=== PATIENT | male | born 1955 | race African-American/Black ===

== ENCOUNTER 2016-08-13 13:09 | Inpatient (IN) | payer OTHER ==
[2016-08-13 17:38] VITALS: BMI 21.8
--- NOTE | 2016-08-13 18:01 | HP ---
COWS - Scale Resting Pulse: 1= [place] 81-100 Sweatin= Chills/Flushing Restless Observation: 1= Difficult to Sit Still Pupil Size: 0= Normal to Room Light Bone or Joint Aches: 1= Mild Discomfort Runny Nose/ Eye Tearin= Nasal Congestion GI Upset > 30mins: 1= Stomach Cramp Tremor Observation: 2= Slight Tremor Visible Yawning Observation: 1= 1-2x During Session Anxiety or Irritability: 1=Feels Anxious/Irritable Goose Flesh Skin: 3=Piloerection COWS Score: 13 Admission [facility] Chief Complaint: withdrawal sx Allergies/Adverse Reactions: Allergies Allergy/AdvReac Type Severity Reaction Status Date / Time No Known Allergies Allergy Verified 08/13/16 17:21 History of Present Illness: 60 years old male with long history of opiate cocaine marijuana nicotine dependence, weight loss, bph denies mental illness is admitted to detox Exam Limitations: No Limitations - Ebola screening Have you traveled outside of the country in the last 21 days: No Have you had contact with anyone from an Ebola affected area: No Have you been sick,other than usual withdrawal symptoms: No Do you have a fever: No - Review of Systems Constitutional: Chills, Loss of Appetite, Changes in sleep, Unintentional Wgt. Loss, Unexplained wgt Loss EENT: reports: No Symptoms Reported Respiratory: reports: SOB with Exertion Cardiac: reports: Chest Pain (2 weeks ago treated at [facility] released with recommendation stop cocaine,) GI: reports: Nausea, Poor Appetite, Poor Fluid Intake, Abdominal cramping : reports: Dysuria (bph) Musculoskeletal: reports: Back Pain, Joint Pain, Muscle Pain Integumentary: reports: No Symptoms Reported Neuro: reports: Tremors Endocrine: reports: No Symptoms Reported Hematology: reports: No Symptoms Reported Psychiatric: reports: Judgement Intact, Mood/Affect Appropiate, Orientated x3 Other Systems: Reviewed and Negative Patient History - Patient Medical History Hx Anemia: No Hx Asthma: No Hx Chronic Obstructive Pulmonary Disease (COPD): No Hx Cancer: No Hx Cardiac Disorders: Yes (cocaine induced chest pain on 08/10/16) Hx Congestive Heart Failure: No Hx Hypertension: No Hx Hypercholesterolemia: No Hx Pacemaker: No HX Cerebrovascular Accident: No Hx Seizures: No Hx Dementia: No Hx Diabetes: No Hx Gastrointestinal Disorders: No Hx Liver Disease: No Hx Genitourinary Disorders: No Hx Sexually Transmitted Disorders: Yes (tx for syphilis) Hx Renal Disease (ESRD): No Hx Thyroid Disease: No Hx Human Immunodeficiency Virus (HIV): No Hx Hepatitis C: No Hx Depression: No Hx Suicide Attempt: No Hx Bipolar Disorder: No Hx Schizophrenia: No - Patient Surgical History Past Surgical History: Yes Hx Orthopedic Surgery: Yes (bilateral bunion and hammertoe sx.20 yrs ago.) Anesthesia Reaction: No - PPD History Previous Implant?: Yes Documented Results: Negative w/o proof Implanted On Prior [facility] Admission?: No PPD to be Administered?: Yes - Smoking Cessation Smoking history: Current every day smoker Have you smoked in the past 12 months: Yes Aproximately how many cigarettes per day: 20 Cigars Per Day: 0 Hx Chewing Tobacco Use: No Initiated information on smoking cessation: Yes 'Breaking Loose' booklet given: 08/13/16 - Substance & Tx. History Hx Alcohol Use: No Hx Substance Use: Yes Substance Use Type: Cocaine, Marijuana, Opiates Hx Substance Use Treatment: Yes - Substances Abused Heroin Route: Inhalation Frequency: Daily Amount used: 15-20 BAGS Age of first use: 21 Date of Last Use: 08/12/16 Cocaine Route: Inhalation Frequency: 3-6 times per week Amount used: $200 Age of first use: 23 Date of Last Use: 08/10/16 Alcohol Route: Oral Frequency: 3-6 times per week Amount used: 2 CANS BEER Age of first use: 12 Date of Last Use: 08/10/16 Family Disease History - Family Disease History Family Disease History: Other: Father (), Mother () Other Family History: adopted Admission Physical Exam [facility] - Vital Signs Vital Signs: Vital Signs - 24 hr 08/13/16 17:34 Temperature 97.1 F L Pulse Rate 90 Respiratory 18 Rate Blood Pressure 115/63 - Physical General Appearance: Yes: Appropriately Dressed, Mild Distress, Thin, Tremorous, Irritable, Sweating, Anxious HEENTM: Yes: Hearing grossly Normal, Normal ENT Inspection, Normocephalic, Normal Voice Respiratory: Yes: Chest Non-Tender, Lungs Clear, Normal Breath Sounds, No Respiratory Distress, No Accessory Muscle Use Neck: Yes: Trachea in good position Breast: Yes: Breasts Symetrical Cardiology: Yes: Regular Rhythm, S1, S2, Tachycardia, Other (cocaine induced chest pain 2 weeks ago nitro sl prn) Genitourinary: Yes: Within Normal Limits Back: Yes: Normal Inspection Musculoskeletal: Yes: full range of Motion, Gait Steady, Muscle Pain Extremities: Yes: Normal Inspection, Normal Range of Motion, Non-Tender, Tremors Neurological: Yes: Fully Oriented, Alert, Motor Strength 5/5, Normal Mood/Affect , Normal Response Integumentary: Yes: Warm Lymphatic: Yes: Within Normal Limits - Diagnostic (1) Opioid dependence with withdrawal Current Visit: Yes Status: Acute (2) Cocaine dependence, uncomplicated Current Visit: Yes Status: Chronic (3) Cannabis dependence, uncomplicated Current Visit: Yes Status: Chronic (4) Nicotine dependence Current Visit: Yes Status: Acute Qualifiers: Nicotine product type: cigarettes Substance use status: in withdrawal Qualified Code(s): F17.213 - Nicotine dependence, cigarettes, with withdrawal (5) Weight loss Current Visit: Yes Status: Acute Cleared for Admission [facility] - Detox or Rehab [facility] Level of Care: Medically Managed Detox Regimen/Protocol: Methadone [facility] Breath Alcohol Content Breath Alcohol Content: 0 Urine Drug Screen - Results Drug Screen Negative: No Urine Drug Screen Results: THC-Marijuana, CHRISTINE-Cocaine, OPI-Opiates
[2016-08-13] MEDS ORDERED: NICOTINE POLACRILEX 4 MG GUM BC PRN (18:06)
[2016-08-13] MEDS ORDERED: diphenhydrAMINE HCL 50 MG CAPSULE PO PRN (18:06)
[2016-08-13] MEDS ORDERED: P-EPHED 60MG/TRIPROLIDI 2.5MG TABLET PO PRN (18:06)
[2016-08-13] MEDS ORDERED: ACETAMINOPHEN 325 MG TABLET (FP) PO PRN (18:06)
[2016-08-13] MEDS ORDERED: MAGNESIUM CITRATE 300 ML BOTTLE PO PRN (18:06)
[2016-08-13] MEDS ORDERED: LOPERAMIDE HCL 2 MG CAPSULE PO PRN (18:06)
[2016-08-13] MEDS ORDERED: MENTHOL/PHENOL 1 EACH UD MM PRN (18:06)
[2016-08-13] MEDS ORDERED: MAGNESIUM HYDROX 2400MG/30ML ORAL SUSPENSION 30 ML CUP PO PRN (18:06)
[2016-08-13] MEDS ORDERED: MAG HYDROX/AL HYDROX/SIMETH 30 ML UNIT-DOSE CUP PO PRN (18:06)
[2016-08-13] MEDS ORDERED: guaiFENesin/D-METHORPHAN HB 10 ML UNIT-DOSE CUPS PO PRN (18:06)
[2016-08-13] MEDS ORDERED: IBUPROFEN 400 MG TABLET (FP) PO PRN (18:06)
[2016-08-13] MEDS ORDERED: NITROGLYCERIN SUBLINGUAL 1/150 0.4 MG TAB SL PRN (18:08)
[2016-08-13] MEDS ORDERED: METHADONE HCL 10 MG TABLET (FOR DETOX USE ONLY) PO ONE ×2 (19:00→23:00)
[2016-08-13] MEDS: diazePAM 5 MG TABLET PO PRN (19:15)
[2016-08-13] MEDS: THIAMINE HCL 100 MG TABLET (FP) PO SCH (22:48)
[2016-08-13 23:40] LABS: URINE APPEARANCE CLEAR; URINE BILIRUBIN NEGATIVE (NEGATIVE); URINE BLOOD NEGATIVE (NEGATIVE); URINE COLOR YELLOW; URINE GLUCOSE (UA) NEGATIVE (NEGATIVE); URINE KETONE TRACE (NEGATIVE); URINE LEUK ESTERASE NEGATIVE (NEGATIVE); URINE NITRITE NEGATIVE (NEGATIVE); URINE PROTEIN NEGATIVE (NEGATIVE); URINE UROBILINOGEN 2.0 E.U/dl E.U./dl (0.2-1.0)
[2016-08-14 10:00] LABS: MCH 23.7 pg (25.7-33.7); MEAN PLT VOLUME 10.6 fl (7.5-11.1); PLATELET COUNT 169 K/MM3 (134-434); RDW 15.6 % (11.9-15.9)
[2016-08-14] MEDS ORDERED: METHADONE HCL 10 MG TABLET (FOR DETOX USE ONLY) PO ONE (10:00)
[2016-08-14 10:20] LABS: ALBUMIN 3.1 g/dl (3.4-5.0); ALK PHOS 58 U/L (45-117); ANION GAP 11 (8-16); BILIRUBIN,TOTAL 0.7 mg/dL (0.2-1.0); CALCIUM 8.6 mg/dL (8.5-10.1); CO2 24 mmol/L (21-32); CREATININE 1.1 mg/dL (0.7-1.3); GLUCOSE,RANDOM 118 mg/dL (74-106); SGOT/AST 38 U/L (15-37); SGPT/ALT 53 U/L (12-78); TOT PROT 5.6 g/dl (6.4-8.2)
--- NOTE | 2016-08-14 10:34 | PN ---
S COWS - Scale Resting Pulse: 1= [place] 81-100 Sweatin= Chills/Flushing Restless Observation: 3= Extraneous Movement Pupil Size: 2= Moderately Dilated Bone or Joint Aches: 4=Acute Joint/Muscle Pain Runny Nose/ Eye Tearin= Nasal Congestion GI Upset > 30mins: 1= Stomach Cramp Tremor Observation of Outstretched Hands: 2= Slight Tremor Visible Yawning Observation: 1= 1-2x During Session Anxiety or Irritability: 2=Irritable/Anxious Goose Flesh Skin: 0=Smooth Skin COWS Score: 18 BHS Progress Note (SOAP) Subjective: ANXIETY,SWEATS,IRRITABILITY," I'M DOPE SICK". Objective: 08/14/16 10:36 Vital Signs 08/14/16 08/14/16 08/14/16 03:34 06:19 10:04 Temperature 96.6 F L Pulse Rate 83 86 Respiratory 18 18 20 Rate Blood Pressure 127/87 121/84 Laboratory Last Values WBC 4.0 K/mm3 (4.0-10.0) 08/14/16 06:00 RBC 4.45 M/mm3 (4.00-5.60) 08/14/16 06:00 Hgb 10.6 GM/dL (11.7-16.9) L 08/14/16 06:00 Hct 32.9 % (35.4-49) L 08/14/16 06:00 MCV 74.0 fl (80-96) L 08/14/16 06:00 MCHC 32.0 g/dl (32.0-35.9) 08/14/16 06:00 RDW 15.6 % (11.9-15.9) 08/14/16 06:00 Plt Count 169 K/MM3 (134-434) 08/14/16 06:00 MPV 10.6 fl (7.5-11.1) 08/14/16 06:00 Sodium 145 mmol/L (136-145) 08/14/16 06:00 Potassium 4.2 mmol/L (3.5-5.1) 08/14/16 06:00 Chloride 110 mmol/L (98-107) H 08/14/16 06:00 Carbon Dioxide 24 mmol/L (21-32) 08/14/16 06:00 Anion Gap 11 (8-16) 08/14/16 06:00 BUN 17 mg/dL (7-18) 08/14/16 06:00 Creatinine 1.1 mg/dL (0.7-1.3) 08/14/16 06:00 Creat Clearance w eGFR > 60 (>60) 08/14/16 06:00 Random Glucose 118 mg/dL (74-106) H 08/14/16 06:00 Calcium 8.6 mg/dL (8.5-10.1) 08/14/16 06:00 Total Bilirubin 0.7 mg/dL (0.2-1.0) 08/14/16 06:00 AST 38 U/L (15-37) H 08/14/16 06:00 ALT 53 U/L (12-78) 08/14/16 06:00 Alkaline Phosphatase 58 U/L (45-117) 08/14/16 06:00 Total Protein 5.6 g/dl (6.4-8.2) L 08/14/16 06:00 Albumin 3.1 g/dl (3.4-5.0) L 08/14/16 06:00 Urine Color Yellow 08/13/16 23:20 Urine Appearance Clear 08/13/16 23:20 Urine pH 5.0 (5.0-8.0) 08/13/16 23:20 Ur Specific [place] 1.031 (1.001-1.035) 08/13/16 23:20 Urine Protein Negative (NEGATIVE) 08/13/16 23:20 Urine Glucose (UA) Negative (NEGATIVE) 08/13/16 23:20 Urine Ketones Trace (NEGATIVE) H 08/13/16 23:20 Urine Blood Negative (NEGATIVE) 08/13/16 23:20 Urine Nitrite Negative (NEGATIVE) 08/13/16 23:20 Urine Bilirubin Negative (NEGATIVE) 08/13/16 23:20 Urine Urobilinogen 2.0 e.u/dl E.U./dl (0.2-1.0) 08/13/16 23:20 Ur Leukocyte Esterase Negative (NEGATIVE) 08/13/16 23:20 Assessment: 08/14/16 10:36 WITHDRAWAL SX Plan: CONTINUE DETOX INCREASE PO FLUIDS.
[2016-08-14] MEDS: PRENATAL VITAMINS W/ FOLIC ACID TABLET (FP) PO SCH (10:36)
[2016-08-14] MEDS: NICOTINE 21 MG/24 HOURS TOPICAL PATCH TD SCH (10:36)
[2016-08-14] MEDS: cloNIDine HCL 0.1 MG TABLET PO SCH ×2 (12:08→22:52)
[2016-08-14] MEDS: CYCLOBENZAPRINE HCL 10 MG TABLET (FP) PO SCH ×2 (14:45→22:52)
[2016-08-14] MEDS: diazePAM 5 MG TABLET PO PRN ×2 (17:25→22:52)
[2016-08-14] MEDS: THIAMINE HCL 100 MG TABLET (FP) PO SCH (22:52)
--- NOTE | 2016-08-14 23:39 | EKG ---
Test Reason : Blood Pressure : / mmHG Vent. Rate : 088 BPM Atrial Rate : 088 BPM P-R Int : 126 ms QRS Dur : 096 ms QT Int : 388 ms P-R-T Axes : 052 062 233 degrees QTc Int : 469 ms NORMAL SINUS RHYTHM POSSIBLE LEFT ATRIAL ENLARGEMENT LEFT VENTRICULAR HYPERTROPHY WITH REPOLARIZATION ABNORMALITY ABNORMAL ECG NO PREVIOUS ECGS AVAILABLE Confirmed by CECILIA WILLAMS MD ([id number]) on 08/14/2016 11:39:04 PM Referred By: Confirmed By:CECILIA WILLAMS MD
[2016-08-15] MEDS: CYCLOBENZAPRINE HCL 10 MG TABLET (FP) PO SCH ×3 (05:59→22:05)
[2016-08-15] MEDS: diazePAM 5 MG TABLET PO PRN ×2 (06:01→22:05)
[2016-08-15] MEDS ORDERED: METHADONE HCL 5 MG TABLET (FOR DETOX USE ONLY) PO ONE (10:00)
[2016-08-15] MEDS: PRENATAL VITAMINS W/ FOLIC ACID TABLET (FP) PO SCH (10:23)
[2016-08-15] MEDS: cloNIDine HCL 0.1 MG TABLET PO SCH ×2 (10:23→22:05)
[2016-08-15] MEDS: NICOTINE 21 MG/24 HOURS TOPICAL PATCH TD SCH (10:23)
--- NOTE | 2016-08-15 11:12 | PN ---
[facility] CIWA - CIWA Score Nausea/Vomitin-No Nausea/No Vomiting Muscle Tremors: 4-Moderate,w/Arms Extend Anxiety: 4-Mod. Anxious/Guarded Agitation: 4-Moderately Restless Paroxysmal Sweats: 1-Minimal Palms Moist Orientation: 0-Oriented Tacttile Disturbances: 3-Moderate Itch/Numb/Burn Auditory Disturbances: 0-None Visual Disturbances: 0-None Headache: 0-None Present CIWA-Ar Total Score: 16 BHS Progress Note (SOAP) Subjective: ANXIETY,SWEATS,TREMORS,FATIGUE. Objective: 08/15/16 11:12 Vital Signs Temperature 95.2 F L 08/15/16 09:40 Pulse Rate 81 08/15/16 09:40 Respiratory Rate 18 08/15/16 09:40 Blood Pressure 115/73 08/15/16 09:40 O2 Sat by Pulse Oximetry (%) Laboratory Last Values WBC 4.0 K/mm3 (4.0-10.0) 08/14/16 06:00 RBC 4.45 M/mm3 (4.00-5.60) 08/14/16 06:00 Hgb 10.6 GM/dL (11.7-16.9) L 08/14/16 06:00 Hct 32.9 % (35.4-49) L 08/14/16 06:00 MCV 74.0 fl (80-96) L 08/14/16 06:00 MCHC 32.0 g/dl (32.0-35.9) 08/14/16 06:00 RDW 15.6 % (11.9-15.9) 08/14/16 06:00 Plt Count 169 K/MM3 (134-434) 08/14/16 06:00 MPV 10.6 fl (7.5-11.1) 08/14/16 06:00 Sodium 145 mmol/L (136-145) 08/14/16 06:00 Potassium 4.2 mmol/L (3.5-5.1) 08/14/16 06:00 Chloride 110 mmol/L (98-107) H 08/14/16 06:00 Carbon Dioxide 24 mmol/L (21-32) 08/14/16 06:00 Anion Gap 11 (8-16) 08/14/16 06:00 BUN 17 mg/dL (7-18) 08/14/16 06:00 Creatinine 1.1 mg/dL (0.7-1.3) 08/14/16 06:00 Creat Clearance w eGFR > 60 (>60) 08/14/16 06:00 Random Glucose 118 mg/dL (74-106) H 08/14/16 06:00 Calcium 8.6 mg/dL (8.5-10.1) 08/14/16 06:00 Total Bilirubin 0.7 mg/dL (0.2-1.0) 08/14/16 06:00 AST 38 U/L (15-37) H 08/14/16 06:00 ALT 53 U/L (12-78) 08/14/16 06:00 Alkaline Phosphatase 58 U/L (45-117) 08/14/16 06:00 Total Protein 5.6 g/dl (6.4-8.2) L 08/14/16 06:00 Albumin 3.1 g/dl (3.4-5.0) L 08/14/16 06:00 Urine Color Yellow 08/13/16 23:20 Urine Appearance Clear 08/13/16 23:20 Urine pH 5.0 (5.0-8.0) 08/13/16 23:20 Ur Specific [place] 1.031 (1.001-1.035) 08/13/16 23:20 Urine Protein Negative (NEGATIVE) 08/13/16 23:20 Urine Glucose (UA) Negative (NEGATIVE) 08/13/16 23:20 Urine Ketones Trace (NEGATIVE) H 08/13/16 23:20 Urine Blood Negative (NEGATIVE) 08/13/16 23:20 Urine Nitrite Negative (NEGATIVE) 08/13/16 23:20 Urine Bilirubin Negative (NEGATIVE) 08/13/16 23:20 Urine Urobilinogen 2.0 e.u/dl E.U./dl (0.2-1.0) 08/13/16 23:20 Ur Leukocyte Esterase Negative (NEGATIVE) 08/13/16 23:20 RPR Titer Nonreactive (NONREACTIVE) 08/14/16 06:00 Assessment: 08/15/16 11:12 WITHDRAWAL SX Plan: CONTINUE DETOX
[2016-08-15] MEDS: THIAMINE HCL 100 MG TABLET (FP) PO SCH (22:07)
[2016-08-16] MEDS: diazePAM 5 MG TABLET PO PRN (03:45)
[2016-08-16] MEDS: CYCLOBENZAPRINE HCL 10 MG TABLET (FP) PO SCH ×3 (07:13→22:24)
[2016-08-16] MEDS ORDERED: METHADONE HCL 5 MG TABLET (FOR DETOX USE ONLY) PO ONE (10:00)
[2016-08-16] MEDS: PRENATAL VITAMINS W/ FOLIC ACID TABLET (FP) PO SCH (10:48)
[2016-08-16] MEDS: NICOTINE 21 MG/24 HOURS TOPICAL PATCH TD SCH (10:48)
[2016-08-16] MEDS: cloNIDine HCL 0.1 MG TABLET PO SCH ×2 (10:48→22:24)
--- NOTE | 2016-08-16 11:50 | PN ---
BHS Progress Note (SOAP) Subjective: Stomach Cramping,Fatigue, Sweating, Body Aches,Tremors. Objective: PT. A & O X 3. 08/16/16 11:48 Vital Signs Temperature 96.5 F L 08/16/16 09:19 Pulse Rate 86 08/16/16 09:19 Respiratory Rate 18 08/16/16 09:19 Blood Pressure 113/78 08/16/16 09:19 O2 Sat by Pulse Oximetry (%) Laboratory Last Values WBC 4.0 K/mm3 (4.0-10.0) 08/14/16 06:00 RBC 4.45 M/mm3 (4.00-5.60) 08/14/16 06:00 Hgb 10.6 GM/dL (11.7-16.9) L 08/14/16 06:00 Hct 32.9 % (35.4-49) L 08/14/16 06:00 MCV 74.0 fl (80-96) L 08/14/16 06:00 MCHC 32.0 g/dl (32.0-35.9) 08/14/16 06:00 RDW 15.6 % (11.9-15.9) 08/14/16 06:00 Plt Count 169 K/MM3 (134-434) 08/14/16 06:00 MPV 10.6 fl (7.5-11.1) 08/14/16 06:00 Sodium 145 mmol/L (136-145) 08/14/16 06:00 Potassium 4.2 mmol/L (3.5-5.1) 08/14/16 06:00 Chloride 110 mmol/L (98-107) H 08/14/16 06:00 Carbon Dioxide 24 mmol/L (21-32) 08/14/16 06:00 Anion Gap 11 (8-16) 08/14/16 06:00 BUN 17 mg/dL (7-18) 08/14/16 06:00 Creatinine 1.1 mg/dL (0.7-1.3) 08/14/16 06:00 Creat Clearance w eGFR > 60 (>60) 08/14/16 06:00 Random Glucose 118 mg/dL (74-106) H 08/14/16 06:00 Calcium 8.6 mg/dL (8.5-10.1) 08/14/16 06:00 Total Bilirubin 0.7 mg/dL (0.2-1.0) 08/14/16 06:00 AST 38 U/L (15-37) H 08/14/16 06:00 ALT 53 U/L (12-78) 08/14/16 06:00 Alkaline Phosphatase 58 U/L (45-117) 08/14/16 06:00 Total Protein 5.6 g/dl (6.4-8.2) L 08/14/16 06:00 Albumin 3.1 g/dl (3.4-5.0) L 08/14/16 06:00 Urine Color Yellow 08/13/16 23:20 Urine Appearance Clear 08/13/16 23:20 Urine pH 5.0 (5.0-8.0) 08/13/16 23:20 Ur Specific [place] 1.031 (1.001-1.035) 08/13/16 23:20 Urine Protein Negative (NEGATIVE) 08/13/16 23:20 Urine Glucose (UA) Negative (NEGATIVE) 08/13/16 23:20 Urine Ketones Trace (NEGATIVE) H 08/13/16 23:20 Urine Blood Negative (NEGATIVE) 08/13/16 23:20 Urine Nitrite Negative (NEGATIVE) 08/13/16 23:20 Urine Bilirubin Negative (NEGATIVE) 08/13/16 23:20 Urine Urobilinogen 2.0 e.u/dl E.U./dl (0.2-1.0) 08/13/16 23:20 Ur Leukocyte Esterase Negative (NEGATIVE) 08/13/16 23:20 RPR Titer Nonreactive (NONREACTIVE) 08/14/16 06:00 LABS NOTED. Assessment: 08/16/16 11:49 WITHDRAWAL SYMPTOMS. Plan: CONTINUE DETOX. ADVISED PATIENT TO FOLLOW-UP WITH [facility] / REHAB MEDICAL PROVIDER AFTER DISCHARGE FROM DETOX FOR GENERAL MEDICAL ASSESSMENT AND FOR ANY ABNORMAL ADMISSION LAB VALUES.
[2016-08-16] MEDS: THIAMINE HCL 100 MG TABLET (FP) PO SCH (22:24)
[2016-08-17] MEDS: CYCLOBENZAPRINE HCL 10 MG TABLET (FP) PO SCH ×3 (06:07→22:06)
[2016-08-17] MEDS ORDERED: METHADONE HCL 10 MG TABLET (FOR DETOX USE ONLY) PO ONE (10:00)
[2016-08-17] MEDS: NICOTINE 21 MG/24 HOURS TOPICAL PATCH TD SCH (10:14)
[2016-08-17] MEDS: PRENATAL VITAMINS W/ FOLIC ACID TABLET (FP) PO SCH (10:14)
[2016-08-17] MEDS: cloNIDine HCL 0.1 MG TABLET PO SCH ×2 (10:14→22:06)
--- NOTE | 2016-08-17 15:15 | PN ---
BHS Progress Note (SOAP) Subjective: Sweating,interrupted sleep,restless Objective: 08/17/16 15:14 Vital Signs - 8 hr 08/17/16 08/17/16 10:47 14:16 Temperature 96.2 F L 97.7 F Pulse Rate 81 94 H Respiratory 20 20 Rate Blood Pressure 107/74 115/77 Laboratory Last Values WBC 4.0 K/mm3 (4.0-10.0) 08/14/16 06:00 RBC 4.45 M/mm3 (4.00-5.60) 08/14/16 06:00 Hgb 10.6 GM/dL (11.7-16.9) L 08/14/16 06:00 Hct 32.9 % (35.4-49) L 08/14/16 06:00 MCV 74.0 fl (80-96) L 08/14/16 06:00 MCHC 32.0 g/dl (32.0-35.9) 08/14/16 06:00 RDW 15.6 % (11.9-15.9) 08/14/16 06:00 Plt Count 169 K/MM3 (134-434) 08/14/16 06:00 MPV 10.6 fl (7.5-11.1) 08/14/16 06:00 Sodium 145 mmol/L (136-145) 08/14/16 06:00 Potassium 4.2 mmol/L (3.5-5.1) 08/14/16 06:00 Chloride 110 mmol/L (98-107) H 08/14/16 06:00 Carbon Dioxide 24 mmol/L (21-32) 08/14/16 06:00 Anion Gap 11 (8-16) 08/14/16 06:00 BUN 17 mg/dL (7-18) 08/14/16 06:00 Creatinine 1.1 mg/dL (0.7-1.3) 08/14/16 06:00 Creat Clearance w eGFR > 60 (>60) 08/14/16 06:00 Random Glucose 118 mg/dL (74-106) H 08/14/16 06:00 Calcium 8.6 mg/dL (8.5-10.1) 08/14/16 06:00 Total Bilirubin 0.7 mg/dL (0.2-1.0) 08/14/16 06:00 AST 38 U/L (15-37) H 08/14/16 06:00 ALT 53 U/L (12-78) 08/14/16 06:00 Alkaline Phosphatase 58 U/L (45-117) 08/14/16 06:00 Total Protein 5.6 g/dl (6.4-8.2) L 08/14/16 06:00 Albumin 3.1 g/dl (3.4-5.0) L 08/14/16 06:00 Urine Color Yellow 08/13/16 23:20 Urine Appearance Clear 08/13/16 23:20 Urine pH 5.0 (5.0-8.0) 08/13/16 23:20 Ur Specific [place] 1.031 (1.001-1.035) 08/13/16 23:20 Urine Protein Negative (NEGATIVE) 08/13/16 23:20 Urine Glucose (UA) Negative (NEGATIVE) 08/13/16 23:20 Urine Ketones Trace (NEGATIVE) H 08/13/16 23:20 Urine Blood Negative (NEGATIVE) 08/13/16 23:20 Urine Nitrite Negative (NEGATIVE) 08/13/16 23:20 Urine Bilirubin Negative (NEGATIVE) 08/13/16 23:20 Urine Urobilinogen 2.0 e.u/dl E.U./dl (0.2-1.0) 08/13/16 23:20 Ur Leukocyte Esterase Negative (NEGATIVE) 08/13/16 23:20 RPR Titer Nonreactive (NONREACTIVE) 08/14/16 06:00 labs noted Assessment: 08/17/16 15:14 Withdrawal sx. Plan: Continue detox
[2016-08-17] MEDS: THIAMINE HCL 100 MG TABLET (FP) PO SCH (22:07)
[2016-08-18] MEDS: CYCLOBENZAPRINE HCL 10 MG TABLET (FP) PO SCH (05:35)
[2016-08-18] MEDS ORDERED: METHADONE HCL 5 MG TABLET (FOR DETOX USE ONLY) PO ONE (06:00)
[2016-08-18 06:36] VITALS: BP 123/82; PULSE 96; TEMP 96.1
--- NOTE | 2016-08-18 10:25 | DS ---
[facility] Detox Discharge Summary Admission Date: 08/13/16 Discharge Date: 08/18/16 - History Present History: Cannabis Dependence, Cocaine Dependence, Opioid Dependence Pertinent Past History: Chest pain on NTG in the past - Physical Exam Results Vital Signs: Vital Signs Temperature 96.1 F L 08/18/16 06:36 Pulse Rate 96 H 08/18/16 06:36 Respiratory Rate 18 08/18/16 06:36 Blood Pressure 123/82 08/18/16 06:36 O2 Sat by Pulse Oximetry (%) Pertinent Admission Physical Exam Findings: Withdrawal sx. Laboratory Last Values WBC 4.0 K/mm3 (4.0-10.0) 08/14/16 06:00 RBC 4.45 M/mm3 (4.00-5.60) 08/14/16 06:00 Hgb 10.6 GM/dL (11.7-16.9) L 08/14/16 06:00 Hct 32.9 % (35.4-49) L 08/14/16 06:00 MCV 74.0 fl (80-96) L 08/14/16 06:00 MCHC 32.0 g/dl (32.0-35.9) 08/14/16 06:00 RDW 15.6 % (11.9-15.9) 08/14/16 06:00 Plt Count 169 K/MM3 (134-434) 08/14/16 06:00 MPV 10.6 fl (7.5-11.1) 08/14/16 06:00 Sodium 145 mmol/L (136-145) 08/14/16 06:00 Potassium 4.2 mmol/L (3.5-5.1) 08/14/16 06:00 Chloride 110 mmol/L (98-107) H 08/14/16 06:00 Carbon Dioxide 24 mmol/L (21-32) 08/14/16 06:00 Anion Gap 11 (8-16) 08/14/16 06:00 BUN 17 mg/dL (7-18) 08/14/16 06:00 Creatinine 1.1 mg/dL (0.7-1.3) 08/14/16 06:00 Creat Clearance w eGFR > 60 (>60) 08/14/16 06:00 Random Glucose 118 mg/dL (74-106) H 08/14/16 06:00 Calcium 8.6 mg/dL (8.5-10.1) 08/14/16 06:00 Total Bilirubin 0.7 mg/dL (0.2-1.0) 08/14/16 06:00 AST 38 U/L (15-37) H 08/14/16 06:00 ALT 53 U/L (12-78) 08/14/16 06:00 Alkaline Phosphatase 58 U/L (45-117) 08/14/16 06:00 Total Protein 5.6 g/dl (6.4-8.2) L 08/14/16 06:00 Albumin 3.1 g/dl (3.4-5.0) L 08/14/16 06:00 Urine Color Yellow 08/13/16 23:20 Urine Appearance Clear 08/13/16 23:20 Urine pH 5.0 (5.0-8.0) 08/13/16 23:20 Ur Specific [place] 1.031 (1.001-1.035) 08/13/16 23:20 Urine Protein Negative (NEGATIVE) 08/13/16 23:20 Urine Glucose (UA) Negative (NEGATIVE) 08/13/16 23:20 Urine Ketones Trace (NEGATIVE) H 08/13/16 23:20 Urine Blood Negative (NEGATIVE) 08/13/16 23:20 Urine Nitrite Negative (NEGATIVE) 08/13/16 23:20 Urine Bilirubin Negative (NEGATIVE) 08/13/16 23:20 Urine Urobilinogen 2.0 e.u/dl E.U./dl (0.2-1.0) 08/13/16 23:20 Ur Leukocyte Esterase Negative (NEGATIVE) 08/13/16 23:20 RPR Titer Nonreactive (NONREACTIVE) 08/14/16 06:00 labs noted - Treatment Hospital Course: Detox Protocol Followed, Detoxed Safely, Responded well, Discharged Condition Good, Rehab Referral Accepted Patient has Accepted a Rehab Referral to: [facility] meetings - Medication Discharge Medications: Ambulatory Orders Doxazosin Mesylate [Cardura -] 4 mg PO DAILY 08/13/16 Nitroglycerin [Nitrostat] 0.4 mg SL ASDIR PRN 08/13/16 - Diagnosis (1) Nicotine dependence Status: Acute Qualifiers: Nicotine product type: cigarettes Substance use status: in withdrawal Qualified Code(s): F17.213 - Nicotine dependence, cigarettes, with withdrawal (2) Opioid dependence with withdrawal Status: Acute (3) Cannabis dependence, uncomplicated Status: Acute (4) Cocaine dependence, uncomplicated Status: Acute - AMA Did Patient Leave Against Medical Advice: No
== END 2016-08-18 09:16 | disposition home or self-care (01) | DRG 773 ==
LOC: YASAS 13:09 → Y3N 18:34
PROVIDERS: ADMIT Internal Medicine; ATTEND Internal Medicine
PROC: HZ2ZZZZ Detoxification Services for Substance Abuse Treatment (ICD-10-PCS; principal; 2016-08-18)
DX: F11.23 Opioid dependence with withdrawal (principal); F14.20 Cocaine dependence, uncomplicated; F12.20 Cannabis dependence, uncomplicated; F17.213 Nicotine dependence, cigarettes, with withdrawal; R63.4 Abnormal weight loss; Z68.21 Body mass index [BMI] 21.0-21.9, adult
CPT/HCPCS: 36415; 80053; 81003; 85027; 86593; 93005; 93010